=== PATIENT | male | born 2000 | race Two or more races ===

== ENCOUNTER 2024-01-25 16:10 | Emergency (ER) | payer MEDICAID, OTHER ==
[~2024-01-25] VITALS: Ht 175.3 cm; Wt 113.0 kg
[2024-01-25] MEDS ORDERED: ARIP15TA6 PO (16:27)
[2024-01-25] MEDS ORDERED: OLAN15TA PO (16:27)
[2024-01-25] MEDS ORDERED: OLAN10TA PO (16:27)
[2024-01-25] MEDS ORDERED: TRAZ-228 PO (16:27)
[2024-01-25] MEDS ORDERED: DIVA-139 PO (16:27)
[2024-01-25 17:18] VITALS: BP 130/70; PULSE 93; RESP 16; TEMP 98.3; O2SAT 98
== END 2024-01-25 17:24 | disposition home or self-care (01) ==
LOC: ER 16:10
DX: R51.9 Headache, unspecified (principal); M54.2 Cervicalgia; F17.210 Nicotine dependence, cigarettes, uncomplicated; F20.9 Schizophrenia, unspecified; F31.9 Bipolar disorder, unspecified; Z79.899 Other long term (current) drug therapy